=== PATIENT | male | born 1965 | race African-American/Black ===

== ENCOUNTER 2019-08-07 11:25 | Emergency (ER) | payer SELFPAY ==
[~2019-08-07] VITALS: Ht 195.6 cm; Wt 103.0 kg
[2019-08-07 11:55] VITALS: BP 139/70
== END 2019-08-07 15:56 | disposition home or self-care (01) ==
LOC: ER 11:25
DX: H65.01 Acute serous otitis media, right ear (principal); H69.81 Other specified disorders of Eustachian tube, right ear
CPT/HCPCS: 99282